=== PATIENT | female | born 1985 | race American Indian/Alaskan Native ===

== ENCOUNTER 2021-03-04 01:32 | Emergency (ER) | payer SELFPAY ==
--- NOTE | 2021-03-04 01:52 | Event Note ---
ED Screening Note Date of service: 03/04/21 Time: 01:48 ED Screening Note: pt is a 44-year-old -Cypriot female with history of schizophrenia versus schizoaffective disorder. Patient presents tonight with family members for complaint of being out of medications times 1 week. Unknown medication regimen. Patient states crisis of been evicted from home tonight as trigger states hearing voices . Not clear masses denies SI or HI. There are no other exacerbating or relieving factors at this time. This initial assessment/diagnostic orders/clinical plan/treatment(s) is/are subject to change based on patients health status, clinical progression and re- assessment by fellow clinical providers in the ED. Further treatment and workup at subsequent clinical providers discretion. Patient/guardian urged not to elope from the ED as their condition may be serious if not clinically assessed and managed. Initial orders include: Psyh Consult, CMP, CBC, UA, UDS, tylenol, Salicylate, ETOH,
[2021-03-04 02:24] LABS: Basophils # (Auto) 0.1 K/mm3 (0.0-0.1); Basophils % (Auto) 1.1 % (0.0-1.8); Eosinophils # (Auto) 0.1 K/mm3 (0.0-0.4); Hematocrit 34.8 % (30.3-42.9); Lymphocytes # (Auto) 3.5 K/mm3 (1.2-5.4); Lymphocytes % (Auto) 27.7 % (13.4-35.0); Mean Corpuscular HGB Conc 32 % (30-34); Mean Corpuscular Volume 76 fl (79-97); Monocytes # (Auto) 1.2 K/mm3 (0.0-0.8); Monocytes % (Auto) 9.2 % (0.0-7.3); Platelet Count 269 K/mm3 (140-440); Red Blood Count 4.56 M/mm3 (3.65-5.03); Red Cell Distribution Width 14.1 % (13.2-15.2)
[2021-03-04] MEDS ORDERED: ZIPRASIDONE MESYLATE 20 MG VIAL IM ONE (02:25)
[2021-03-04] MEDS ORDERED: ZIPRASIDONE MESYLATE 20 MG VIAL IM PRN (02:25)
[2021-03-04] MEDS ORDERED: WATER FOR INJ Sterile (PF) 10 ML ONE (02:27)
--- NOTE | 2021-03-04 02:34 | Emergency Department Report ---
ED Psych HPI - General Chief Complaint: Psych Stated Complaint: MENTAL HEALTH Time Seen by Provider: 03/04/21 02:21 Source: patient, family Mode of arrival: Ambulatory Limitations: No Limitations - History of Present Illness Initial Comments: CC: "I feel pressure upon myself to harm myself." HPI: This is a 35 yo female with hx of schizoaffective disorder who presents with auditory hallucinations and suicidal ideation. She has not taken psychiatric medications for one week. She states that she was evicted from her home. She is restless. She has insomnia. Patient was seen in 2019. According to electronic medical record patient has history of schizoaffective disorder, beta thalassemia. Previous Complaint: other (Auditory halluciNations suicidal ideation insomnia) -: week(s) Associated Psychiatric Symptoms: suicidal ideation, racing thoughts, auditory hallucinations History of same: Yes Quality: constant Improves With: none Worsens With: none Context: not taking psychiatric, significant life stressor Associated Symptoms: denies other symptoms Treatments Prior to Arrival: none If Self Harm: admits thoughts of - Related Data Allergies Allergy/AdvReac Type Severity Reaction Status Date / Time No Known Allergies Allergy Unverified 03/04/21 01:50 ED Review of Systems ROS: Stated complaint: MENTAL HEALTH Other details as noted in HPI Comment: All other systems reviewed and negative Constitutional: denies: fever, malaise Respiratory: denies: cough, shortness of breath Cardiovascular: denies: chest pain Gastrointestinal: denies: abdominal pain, nausea Psychiatric: auditory hallucinations, suicidal thoughts ED Past Medical Hx - Past Medical History Previous Medical History?: Yes Hx Psychiatric Treatment: Yes (schizoaffective) Additional medical history: Beta thalassemia, chronic back pain - Social History Smoking Status: Current Every Day Smoker ED Physical Exam - General Limitations: No Limitations General appearance: alert, in no apparent distress, other (restless, agitated, roaming the halls, speaking to persons not present) - Head Head exam: Present: atraumatic, normocephalic - Eye Eye exam: Present: normal appearance - ENT ENT exam: Present: mucous membranes moist - Neck Neck exam: Present: normal inspection - Respiratory Respiratory exam: Present: normal lung sounds bilaterally. Absent: respiratory distress, wheezes, rales - Cardiovascular Cardiovascular Exam: Present: regular rate, normal rhythm, normal heart sounds. Absent: systolic murmur, diastolic murmur, rubs, gallop - GI/Abdominal GI/Abdominal exam: Present: soft, normal bowel sounds. Absent: distended, tenderness, guarding, rebound - Extremities Exam Extremities exam: Present: normal inspection - Neurological Exam Neurological exam: Present: alert, oriented X3 - Psychiatric Psychiatric exam: Present: agitated, anxious, manic, suicidal ideation - Skin Skin exam: Present: warm, dry, intact, normal color. Absent: rash ED Course Vital Signs 03/04/21 01:51 Temperature 97.7 F Pulse Rate 85 Respiratory 18 Rate Blood Pressure 114/81 O2 Sat by Pulse 96 Oximetry ED Medical Decision Making - Lab Data Result diagrams: 03/04/21 01:52 03/04/21 01:52 - Medical Decision Making Mrs. Diana has hx of schizoaffective disorder. She presents with SI/AV. She required chemical restraint upon arrival to treatment room. She is medically clear for psychiatric care. I have ordered ED hold. I completed 1013 form. I anticipate transfer to psychiatric facility. Awaiting treatment recommendations per psychiatric team. Critical care attestation.: If time is entered above; I have spent that time in minutes in the direct care of this critically ill patient, excluding procedure time. ED Disposition Clinical Impression: Acute psychosis, Schizoaffective disorder, Suicidal ideation Disposition: DC/TX-70 ANOTHER TYPE HLTHCARE Is pt being admited?: No Does the pt Need Aspirin: No Condition: Stable
[2021-03-04] MEDS ORDERED: WATER FOR INJ Sterile (PF) 10 ML IM ONE (02:36)
[2021-03-04] MEDS ORDERED: MAGNESIUM HYDROXIDE (MOM) ORAL LIQD UDC PO PRN (02:43)
[2021-03-04] MEDS ORDERED: ALUM-MAG HYDROXIDE-SIMETHICONE 200-200-20MG/5ML ORAL LIQD 30 ML PO PRN (02:43)
[2021-03-04] MEDS ORDERED: ACETAMINOPHEN 325 MG TAB PO PRN (02:43)
[2021-03-04 02:47] LABS: Alanine Aminotransferase 16 units/L (7-56); Albumin 3.9 g/dL (3.9-5); BUN/Creatinine Ratio 16; Blood Urea Nitrogen 13 mg/dL (7-17); Calcium 8.6 mg/dL (8.4-10.2); Hemolysis Index 15
--- NOTE | 2021-03-04 08:47 | Consultation ---
History of Present Illness - Reason for Consult Consult date: 03/04/21 Reason for consult: MHE Requesting physician: JENI BUSTAMANTE - History of Present Psychiatric Illness Per ED Provider: This is a 35 yo female with hx of schizoaffective disorder who presents with auditory hallucinations and suicidal ideation. She has not taken psychiatric medications for one week. She states that she was evicted from her home. She is restless. She has insomnia. Patient was seen in 2019. According to electronic medical record patient has history of schizoaffective disorder, beta thalassemia. PSYCH HPI Patient is a 35-year-old , unemployed and then stated that she is employed with the [employer] and also [employer], and that she [place], with past psychiatric history of schizoaffective and bipolar disorder and no significant past medical history who states that she was brought in by her children because she was off her medication and has been having hallucinations. Patient states that she thinks living in a tent or garage or sleeping on the sidewalk in [facility] was a good idea onto she was escorted off the property recently. Patient appears to be incoherent, disorganized, with altered sensorium at this moment making the HPI to be less reliable. PAST PSYCHIATRIC HISTORY Diagnoses: Schizoaffective disorder, bipolar Suicide attempts or Self-harm behavior: n/a Prior psychiatric hospitalizations: yes Substance Abuse history: n/a Previous psychiatric medications tried: n/a Outpatient treatment: yes PAST MEDICAL HISTORY: n/a Family Psychiatric History: None reported or documented SOCIAL HISTORY Marital Status: Living Arrangements: n/a Employment Status: n/a Access to guns/weapons:n/a Education: n/a History of Abuse: n/a Legal History: n/a REVIEW OF SYSTEMS ROS cannot be reliably obtained from the patient due to her confusion MENTAL STATUS EXAMINATION General Appearance and Behavior: Age appropriate, good hygiene, wearing appropriate clothes, poor eye contact, uncooperative with questioning. Cooperation: disengaged Psychomotor Behavior: Psychomotor agitation Mood: n/a Affect and affective range: euthymic, euphoric Thought Process: Illogical, echolalial Thought Content: delusional Speech: Normal volume rate and rhythm Intellectual Functioning: Average Suicidal Ideation: n/a Homicidal Ideation: n/a Impulse Control: Impaired Insight and Judgment: Limited insight and judgment Memory: impaired Attention: Divided attention impaired Orientation: Alert, Diagnoses: Schizoaffective disorder acute Treatment Plan We will start patient on antipsychotic" MEDICATIONS: Risks, benefits and alternatives of medications discussed with the patient, questions answered and consent obtained from patient. PSYCHOTHERAPY: Supportive psychotherapy provided MEDICAL: Per primary team DELIRIUM PRECAUTIONS: Please re-orient patient frequently, keep lights on during the day, and minimize benzodiazepines and opiates as these medications could worsen patient's confusion. 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 Case discussed with Dr. Hannah who agrees with current disposition LEGAL STATUS: 1013 FOLLOW-UP: Will follow Thank you for the consult. Please contact with any questions and/or concerns. Medications and Allergies Allergies Allergy/AdvReac Type Severity Reaction Status Date / Time No Known Allergies Allergy Unverified 03/04/21 01:50 Active Meds: Active Medications Acetaminophen (Acetaminophen 325 Mg Tab) 650 mg PO Q4HR PRN PRN Reason: Pain MILD(1-3)/Fever >100.5/CHAKRABORTY Al Hydrox/Mg Hydrox/Simethicone (Alum-Mag Hydroxide-Simethicone [phone]/5ml Oral Liqd 30 Ml) 30 ml PO Q4HR PRN PRN Reason: Indigestion Magnesium Hydroxide (Magnesium Hydroxide (Mom) Oral Liqd Udc) 30 ml PO Q12HR PRN PRN Reason: Constipation Ziprasidone (Ziprasidone Mesylate 20 Mg Vial) 10 mg IM Q2H PRN PRN Reason: Agitation Mental Status Exam - Vital signs Last Vital Signs Temp 97.7 F 03/04/21 01:51 Pulse 85 03/04/21 01:51 Resp 18 03/04/21 01:51 BP 114/81 03/04/21 01:51 Pulse Ox 96 03/04/21 01:51 Results Result Diagrams: 03/04/21 01:52 03/04/21 01:52 Abnormal lab results 03/04/21 03/04/21 03/04/21 Range/Units 01:52 01:52 01:52 WBC 12.8 H (4.5-11.0) K/mm3 MCV 76 L (79-97) fl MCH 24 L (28-32) pg Beckham % (Auto) 9.2 H (0.0-7.3) % Beckham # (Auto) 1.2 H (0.0-0.8) K/mm3 Seg Neutrophils # 7.8 H (1.8-7.7) K/mm3 Glucose (65-100) mg/dL Salicylates < 0.3 L (2.8-20.0) mg/dL Acetaminophen 5.0 L (10.0-30.0) ug/mL 03/04/21 Range/Units 01:52 WBC (4.5-11.0) K/mm3 MCV (79-97) fl MCH (28-32) pg Beckham % (Auto) (0.0-7.3) % Beckham # (Auto) (0.0-0.8) K/mm3 Seg Neutrophils # (1.8-7.7) K/mm3 Glucose 146 H (65-100) mg/dL Salicylates (2.8-20.0) mg/dL Acetaminophen (10.0-30.0) ug/mL All other labs normal.
[2021-03-04 12:06] LABS: Bilirubin,Urine NEG (Negative); Blood,Urine NEG (Negative); Color,Urine Yellow (Yellow); Mucus,Urine 3+ /HPF
[2021-03-04 12:13] LABS: Amphetamine Screen,Urine Negative; Benzodiazepines Screen,Urine Negative; Cocaine Screen,Urine Negative; Methadone Screen,Urine Negative; Opiate Screen,Urine Negative
[2021-03-04 12:37] LABS: Cannabinoid Screen,Urine PRESUMPTIVE POSITIVE
[2021-03-04] MEDS: VALPROIC ACID 250 MG/5 ML ORAL LIQD PO SCH ×2 (15:33→22:40)
[2021-03-04] MEDS: QUEtiapine 100 MG TAB PO SCH ×2 (15:33→22:41)
[2021-03-04 16:19] LABS: Basophils % (Auto) 0.3 % (0.0-1.8); Eosinophils # (Auto) 0.1 K/mm3 (0.0-0.4); Eosinophils % (Auto) 0.8 % (0.0-4.3); Hematocrit 34.7 % (30.3-42.9); Hemoglobin 11.2 gm/dl (10.1-14.3); Lymphocytes # (Auto) 3.2 K/mm3 (1.2-5.4); Lymphocytes % (Auto) 32.4 % (13.4-35.0); Mean Corpuscular HGB Conc 32 % (30-34); Mean Corpuscular Volume 77 fl (79-97); Monocytes % (Auto) 9.6 % (0.0-7.3); Platelet Count 249 K/mm3 (140-440); Red Cell Distribution Width 13.9 % (13.2-15.2)
[2021-03-05 09:31] VITALS: BP 110/78
[2021-03-05] MEDS: VALPROIC ACID 250 MG/5 ML ORAL LIQD PO SCH (11:01)
[2021-03-05] MEDS: QUEtiapine 100 MG TAB PO SCH (11:01)
== END 2021-03-05 14:55 | disposition other institution (70) ==
LOC: ED 01:32 → EEVIPCON 01:32 → ED 03-05 14:55
DX: F25.9 Schizoaffective disorder, unspecified (principal); F23 Brief psychotic disorder; F17.200 Nicotine dependence, unspecified, uncomplicated; Z20.822 Contact with and (suspected) exposure to COVID-19
CPT/HCPCS: 36415; 80053; 80307; 81001; 84443; 84703; 85025; 96372; 99285; J3486; U0003; 80320; G0480

== ENCOUNTER 2021-12-14 04:41 | Emergency (ER) | payer MEDICARE ==
[2021-12-14] MEDS ORDERED: IBUPROFEN 600 MG TAB PO ONE (05:54)
[2021-12-14] MEDS ORDERED: ACETAMINOPHEN 500 MG TAB PO ONE (05:54)
[2021-12-14] MEDS ORDERED: diazePAM 5 MG TAB PO ONE (05:54)
--- NOTE | 2021-12-14 05:59 | Emergency Department Report ---
ED Back Pain/Injury HPI - General Chief Complaint: Extremity Injury, Lower Stated Complaint: LEG PAIN Source: EMS Limitations: No Limitations - History of Present Illness Initial Comments: Patient is a 36-year-old -Tongan female with a history of schizoaffective schizophrenia, anxiety and depression who presented to the ED with complaint of acute onset persistent nontraumatic low back pain that radiates to the lower extremities bilaterally for the last 2 days. Patient states that in the last 8 hours she has not been able to sleep because of persistent pain that is constant and severe. Patient denies fall, traumatic injury, dizziness, syncope, dysuria, urinary frequency and urgency, chest pain or shortness of breath, fever, chills, cough, numbness and tingling or weakness of lower extremities bilaterally, heavy lifting, nausea and vomiting or abdominal pain. MD Complaint: back pain, other (bilateral knee and ankle pain) -: Sudden, days(s) (2) Similar Symptoms Previously: No Place: home Radiation: left leg, right leg Severity: severe Severity scale (0 -10): 8 Quality: burning, sharp, aching Consistency: constant Improves With: none Worsens With: movement, walking Context: unknown (Spontaneous) Associated Symptoms: denies other symptoms. denies: confusion, weakness, chest pain, numbness, difficulty walking, cough, difficulty urinating, diaphoresis, incontinence, fever/chills, constipation, headaches, abdominal pain, loss of appetite, malaise, nausea/vomiting, rash, seizure, shortness of breath, syncope - Related Data Previous Rx's Medication Instructions Recorded Last Taken Type Gabapentin 300 mg PO QHS PRN #21 cap 12/14/21 Unknown Rx Ibuprofen [Motrin] 800 mg PO Q8HR PRN #30 tablet 12/14/21 Unknown Rx methocarbamoL [Methocarbamol] 750 mg PO Q12H #20 12/14/21 Unknown Rx Allergies Allergy/AdvReac Type Severity Reaction Status Date / Time No Known Allergies Allergy Verified 12/14/21 04:43 ED Review of Systems ROS: Stated complaint: LEG PAIN Other details as noted in HPI Constitutional: denies: chills, fever Eyes: denies: eye pain, eye discharge, vision change ENT: denies: ear pain, throat pain Respiratory: denies: cough, shortness of breath, wheezing Cardiovascular: denies: chest pain, palpitations Endocrine: no symptoms reported Gastrointestinal: denies: abdominal pain, nausea, diarrhea Genitourinary: denies: urgency, dysuria, discharge Musculoskeletal: back pain (Lower back pain that radiates to the lower extremities bilaterally), arthralgia (Bilateral lower extremity pain), myalgia. denies: joint swelling Skin: denies: rash, lesions Neurological: denies: headache, weakness, paresthesias Psychiatric: anxiety. denies: depression, auditory hallucinations, visual hallucinations, homicidal thoughts, suicidal thoughts Hematological/Lymphatic: denies: easy bleeding, easy bruising ED Past Medical Hx - Past Medical History Hx Psychiatric Treatment: Yes (schizoaffective) Additional medical history: Beta thalassemia, chronic back pain - Social History Smoking Status: Current Every Day Smoker - Medications Home Medications: Home Medications Medication Instructions Recorded Confirmed Last Taken Type Gabapentin 300 mg PO QHS PRN #21 cap 12/14/21 Unknown Rx Ibuprofen [Motrin] 800 mg PO Q8HR PRN #30 tablet 12/14/21 Unknown Rx methocarbamoL [Methocarbamol] 750 mg PO Q12H #20 12/14/21 Unknown Rx ED Physical Exam - General Limitations: No Limitations General appearance: alert, in no apparent distress - Head Head exam: Present: atraumatic, normocephalic, normal inspection - Eye Eye exam: Present: normal appearance, PERRL, EOMI Pupils: Present: normal accommodation - ENT ENT exam: Present: normal exam, normal orophraynx, mucous membranes moist, TM's normal bilaterally, normal external ear exam - Neck Neck exam: Present: normal inspection, full ROM - Respiratory Respiratory exam: Present: normal lung sounds bilaterally. Absent: respiratory distress, wheezes, rales, stridor, chest wall tenderness, accessory muscle use, decreased breath sounds, prolonged expiratory - Cardiovascular Cardiovascular Exam: Present: normal rhythm, tachycardia, normal heart sounds. Absent: systolic murmur, diastolic murmur, rubs, gallop - GI/Abdominal GI/Abdominal exam: Present: soft, normal bowel sounds. Absent: tenderness, guarding, rebound, hyperactive bowel sounds, hypoactive bowel sounds, organomegaly - Extremities Exam Extremities exam: Present: normal inspection, full ROM, normal capillary refill - Back Exam Back exam: Present: normal inspection, full ROM, tenderness (Palpable lumbosacral paraspinal musculoskeletal tenderness), muscle spasm, paraspinal tenderness - Neurological Exam Neurological exam: Present: alert, oriented X3, CN II-XII intact, normal gait, reflexes normal - Psychiatric Psychiatric exam: Present: normal affect, normal mood, anxious. Absent: agitated, homicidal ideation, suicidal ideation - Skin Skin exam: Present: warm, dry, intact, normal color. Absent: rash ED Course Vital Signs 12/14/21 04:44 Temperature 98.9 F Pulse Rate 114 H Respiratory 16 Rate Blood Pressure 134/80 [Left] O2 Sat by Pulse 98 Oximetry ED Medical Decision Making - Medical Decision Making This is a 36-year-old -Tongan female with a history of schizoaffective schizophrenia, anxiety and depression who presented to the ED with complaint of acute onset persistent nontraumatic low back pain that radiates to the lower extremities bilaterally for the last 2 days. Patient states that in the last 8 hours she has not been able to sleep because of persistent pain that is constant and severe. In the ED, patient is alert and oriented x3 and is not in distress, anxious, tachycardic and afebrile in triage. Based on the history and physical exam findings, the patient symptoms are likely musculoskeletal with lumbar radicular tenderness consistent with sciatica. Patient was treated for pain in the ED and was given muscle relaxant. On reevaluation, patient felt better and tachycardia resolved with medications and treatment. Patient was discharged home on medications and advised to follow-up with her primary care physician in 7 to 10 days for reevaluation or return to the ED immediately if symptoms get worse. - Differential Diagnosis Muscle spasm; muscle strain; sciatica; Critical care attestation.: If time is entered above; I have spent that time in minutes in the direct care of this critically ill patient, excluding procedure time. ED Disposition Clinical Impression: Spasm of muscle of lower back, Strain of muscle, fascia and tendon of lower back, initial encounter Acute low back pain with bilateral sciatica Qualifiers: Back pain laterality: bilateral Qualified Code(s): M54.42 - Lumbago with sciatica, left side; M54.41 - Lumbago with sciatica, right side Disposition: HOME / SELF CARE / HOMELESS Is pt being admited?: No Does the pt Need Aspirin: No Condition: Stable Instructions: Muscle Cramps and Spasms, [id number], Muscle Strain, [id number], Lumbosacral Strain, Sciatica, [id number] Additional Instructions: Your symptoms are likely due to muscle spasm of your low back as well as sciatica or lumbar radiculopathy. Therefore take medications with food, drink plenty fluids and follow-up with your primary care physician in 7 to 10 days for reevaluation. Return to the ED immediately if symptoms get worse. Prescriptions: Gabapentin 300 mg PO QHS PRN #21 cap PRN Reason: Neuropathy methocarbamoL [Methocarbamol] 750 mg PO Q12H #20 Ibuprofen [Motrin] 800 mg PO Q8HR PRN #30 tablet PRN Reason: Pain , Severe (7-10) Referrals: [facility] [Provider Group] - 7-10 days Time of Disposition: 06:01 Print Language: KENYAN
[2021-12-14 06:45] VITALS: BP 126/88
== END 2021-12-14 06:46 | disposition home or self-care (01) ==
LOC: ED 04:41
DX: S39.012A Strain of muscle, fascia and tendon of lower back, initial encounter (principal); M62.830 Muscle spasm of back; M54.42 Lumbago with sciatica, left side; X58.XXXA Exposure to other specified factors, initial encounter; Y93.89 Activity, other specified; Y92.89 Other specified places as the place of occurrence of the external cause; Y99.8 Other external cause status
CPT/HCPCS: 99283